=== PATIENT | female | born 1970 | race Caucasian/White ===

== ENCOUNTER → 2016-09-10 | Outpatient (CLI) | payer BC | LOC: BHSO 15:04 | DX: F90.0 Attention-deficit hyperactivity disorder, predominantly inattentive type (principal) ==

== ENCOUNTER → 2017-04-08 | Outpatient (CLI) | payer BC | LOC: BHSO 10:30 | DX: F90.0 Attention-deficit hyperactivity disorder, predominantly inattentive type (principal) ==

== ENCOUNTER → 2017-11-16 | Outpatient (CLI) | payer OTHER | LOC: BHSO 10:25 | DX: F90.0 Attention-deficit hyperactivity disorder, predominantly inattentive type (principal) | CPT/HCPCS: G0463 ==

== ENCOUNTER → 2018-06-30 | Outpatient (CLI) | payer OTHER | LOC: BHSO 10:01 | DX: F90.0 Attention-deficit hyperactivity disorder, predominantly inattentive type (principal) | CPT/HCPCS: G0463 ==

== ENCOUNTER → 2018-12-15 | Outpatient (CLI) | payer OTHER | LOC: BHSO 11:36 | DX: F90.0 Attention-deficit hyperactivity disorder, predominantly inattentive type (principal) | CPT/HCPCS: G0463 ==

== ENCOUNTER → 2019-06-15 | Outpatient (CLI) | payer OTHER | LOC: BHSO 10:42 | DX: F90.0 Attention-deficit hyperactivity disorder, predominantly inattentive type (principal) | CPT/HCPCS: G0463 ==

== ENCOUNTER → 2020-01-10 | Outpatient (CLI) | payer OTHER | LOC: BHSO 08:55 | DX: F90.0 Attention-deficit hyperactivity disorder, predominantly inattentive type (principal) | CPT/HCPCS: G0463 ==